=== PATIENT | female | born 1940 | race African-American/Black ===

== ENCOUNTER → 2017-01-25 | Outpatient (CLI) | payer MEDICARE, BC, OTHER ==
[~2017-01-25] MED LIST: ALEVE220 M1 PO; ASPIRIN81 MG PO; CLINDAMYCIN HC300 MG PO; D-3; EPIKLOR20 MEQ PO; LASIX PO; LOPRESSOR PO; METFORMIN HCL500 M1 PO; METOPROL PO; VITAMIN D31000 UNIT PO; WELCHOL3.75 GM PO
--- NOTE | ~2017-01-25 | MY29 ---
[facility] A Service of [facility] RADIOLOGY TEXT RESULTS PATIENT: TEENA MART LOCATION: [facility] : 38 UNIT #: [id number] AGE: [address]: Sheila Baltazar MD SEX: F ORDER DR: [id number] [facility] [address] [place], [place] [address] [id number] O MR#: [id number] Acc #: [id number] NAME: TEENA MART. : 1940 SEX: F STUDY DATE/TIME: 01/25/2017 10:52 UNIT: [facility] ROOM: STUDY DESCRIPTION: [facility] SCREENING W/ CAD BILAT Attending Physician: Sheila Baltazar M.D. Referring Physician: Sheila Baltazar M.D. Ordering Physician: Sheila Baltazar M.D. Primary Care Physician: Sheila Baltazar M.D. MEDICAL IMAGING REPORT This report is preliminary unless electronic signature is present EXAM Bilateral digital screening mammogram with CAD 01/25/2017 HISTORY No personal or family history breast cancer. No current complaints. COMPARISON Bilateral screening mammogram 12/20/2015, 05/28/2014. FINDINGS CC and MLO views were obtained of each breast utilizing digital technique and reviewed with a FDA-approved CAD device. Scattered fibroglandular densities are present bilaterally. No new or suspicious nodule is seen. Lymph node anterior to the left pectoral muscles thought to be unchanged, appeared more remote 2014 examination. Benign vascular calcifications are present bilaterally. No suspicious clustered microcalcification. No architectural distortion. IMPRESSION BIRADS 1. Negative screening mammogram. Routine screening mammogram is recommended in 1 year. BIRADS: 1 Negative. Patients over the age of 40 are entered into a reminder system with target due date for the next mammogram. A result letter will also be sent to the patient. Dictated by... Eryn Quick M.D. [facility] A Service of [facility] RADIOLOGY TEXT RESULTS PATIENT: TEENA MART LOCATION: [facility] : 38 UNIT #: [id number] AGE: [address]: Sheila Baltazar MD SEX: F ORDER DR: THIS IS AN ELECTRONICALLY VERIFIED REPORT Eryn Quick M.D. at 01/26/2017 8:33 AM KAYLYN/isela TD: 01/25/2017 17:03 JOB #: [id number] MEDICAL IMAGING REPORT Page 1 of 1 COPY
== END | disposition home or self-care (01) ==
LOC: CWCC 10:23
DX: Z12.31 Encounter for screening mammogram for malignant neoplasm of breast (principal)
CPT/HCPCS: G0202